=== PATIENT | female | born 1985 | race Caucasian/White ===

== ENCOUNTER → 2018-06-27 | Outpatient (CLI) | payer MEDICAID ==
--- NOTE | 2018-06-27 12:01 | Diagnostic Imaging Report ---
PROCEDURE: CT abdomen and pelvis without contrast. TECHNIQUE: Multiple contiguous axial images were obtained through the abdomen and pelvis without the use of intravenous contrast. Auto Exposure Controls were utilized during the CT exam to meet ALARA standards for radiation dose reduction. INDICATION: Abdominal pain, greatest on the right side. COMPARISON: No prior studies are available for comparison. FINDINGS: Lung bases are clear. No discrete liver masses identified. Gallbladder is unremarkable. No biliary ductal dilatation is seen. The pancreas and spleen are unremarkable. No adrenal mass is identified. No definite renal calculi or hydronephrosis is seen. No ureteral calculi are detected. Aorta is nonaneurysmal. Small and large bowel loops are normal caliber. Appendix is unremarkable. There is no ascites. Uterus and ovaries are unremarkable. Bladder is unremarkable. The bony structures are nonacute. IMPRESSION: Unremarkable noncontrast CT of the abdomen and pelvis. No acute abnormality is detected. Dictated by: Dictated on workstation # [id number]
== END ==
LOC: RAD FS 10:17
PROVIDERS: ATTEND Family Medicine
DX: R10.9 Unspecified abdominal pain (principal); M54.5 Low back pain
CPT/HCPCS: 74176